=== PATIENT | female | born 1990 | race African-American/Black ===

== ENCOUNTER 2020-11-03 03:55 | Emergency (ER) | payer MEDICAID ==
[~2020-11-03] VITALS: Ht 177.8 cm; Wt 61.0 kg
[2020-11-03] MEDS ORDERED: IBUPROFEN 600MG TABLET PO ONE (04:15)
[2020-11-03] MEDS ORDERED: ACETAMINOPHEN 325MG TABLET PO PRN (04:15)
[2020-11-03 05:11] LABS: CHLORIDE 106 mEq/L (98-107)
[2020-11-03 05:23] LABS: HCG SCREEN POSITIVE
[2020-11-03 05:51] LABS: B-HCG QUANTITATIVE 26305 mIU/mL (<3)
[2020-11-03] MEDS ORDERED: ACET-2708 MT (06:19)
[2020-11-03] MEDS ORDERED: IBUP-2028 MT (06:19)
[2020-11-03] MEDS ORDERED: ONDA4TAB5 MT (06:24)
[2020-11-03] MEDS ORDERED: METOCLOPRAMIDE HCL 10MG/2ML VIAL IM ONE (06:30)
[2020-11-03 06:33] LABS: HEMATOCRIT 28.5 % (36.0-48.0); HEMOGLOBIN 9.5 g/dL (12.0-16.0); MEAN CORPUSCULAR HEMOGLOBIN 28.6 pg (28.0-32.0); MEAN CORPUSCULAR VOLUME 85.9 fL (81.0-99.0); PLATELET 183 x1000/uL (130-400); RED BLOOD CELL COUNT 3.32 mill/uL (4.2-5.4)
[2020-11-03 07:30] VITALS: BP 139/67
== END 2020-11-03 08:00 | disposition home or self-care (01) ==
LOC: ER 03:55
DX: R10.2 Pelvic and perineal pain (principal); N93.8 Other specified abnormal uterine and vaginal bleeding; E87.6 Hypokalemia; D64.9 Anemia, unspecified; R79.89 Other specified abnormal findings of blood chemistry
CPT/HCPCS: 36415; 76801; 80048; 84702; 84703; 85027; 86900; 96372; 99284

== ENCOUNTER 2023-04-28 19:25 | Emergency (ER) | payer MEDICAID ==
[~2023-04-28] VITALS: Ht 172.7 cm; Wt 55.0 kg
[~2023-04-28 19:25] MED LIST: ACET-2708 MT; IBUP-2028 MT; ONDA4TAB5 MT
[2023-04-28 19:40] VITALS: O2SAT 100
[2023-04-28] MEDS ORDERED: MORPHINE SULFATE 4 MG/ML CPJ (NOT FOR IM USE) IV STA (20:17)
[2023-04-28] MEDS ORDERED: ONDANSETRON HCL 4MG/2ML INJ IV STA (20:17)
[2023-04-28] MEDS ORDERED: SODIUM CHLORIDE 0.9% 1,000 ML IV ONE (20:30)
[2023-04-28 21:04] LABS: HEMATOCRIT. 39.7 % (36.0-48.0); HEMOGLOBIN. 12.9 g/dL (12.0-16.0); MEAN CORPUSCULAR HEMOGLOBIN 27.6 pg (28.0-32.0); MEAN CORPUSCULAR HGB CONC 32.5 g/dL (31.0-37.0); MEAN CORPUSCULAR VOLUME 84.8 fL (81.0-99.0); MEAN PLATELET VOLUME 8.8 fl (7.4-10.4); PLATELET 118 x1000/uL (130-400); RED BLOOD CELL COUNT 4.68 mill/uL (4.2-5.4); RED CELL DISTRIBUTION WIDTH 14.7 % (11.6-14.6); WHITE BLOOD COUNT 5.6 x1000/uL (4.5-11.0)
[2023-04-28 21:08] LABS: DIFFERENTIAL COMMENT 1
[2023-04-28 21:14] LABS: CHLORIDE 93 mEq/L (98-107); INDEX HEMOLYSI 1 (1-3); INDEX ICTERIC 1 (1-4); INDEX LIPEMIC 1 (1-3); POTASSIUM 4.3 mEq/L (3.5-5.1); SODIUM 128 mEq/L (136-145)
[2023-04-28 21:22] LABS: ALANINE AMINOTRANSFERASE 179 IU/L (13-61); ALBUMIN 2.9 g/dL (3.4-5.0); ASPARTATE AMINOTRANSFERASE 358 IU/L (15-37); BILIRUBIN TOTAL 1.4 mg/dL (0.1-1.0); CALCIUM 9.3 mg/dL (8.5-10.1); CARBON DIOXIDE 28 mEq/L (21-32); CREATININE 0.7 mg/dL (0.6-1.3); GLUCOSE 84 mg/dL (70-105); PROTEIN TOTAL 8.2 g/dL (6.0-8.3); UREA NITROGEN BLOOD 11 mg/dL (7-21)
[2023-04-28 21:27] LABS: HCG SCREEN NEGATIVE
[2023-04-28 23:15] VITALS: BP 134/83; PULSE 92; RESP 17; TEMP 98.2
[2023-04-28 23:47] LABS: PLATELET ESTIMATE DECREASED
[2023-04-28 23:48] LABS: ANISOCYTOSIS 1+
== END 2023-04-28 23:46 | disposition short-term general hospital (02) ==
LOC: ER 19:25
DX: R11.2 Nausea with vomiting, unspecified (principal); Z85.3 Personal history of malignant neoplasm of breast
CPT/HCPCS: 80053; 84703; 83690; 85025; 36415; 96361; 96374; 96375; 99285; J2405; J2270; J7030; Z7610 ×3

== ENCOUNTER 2023-05-09 11:27 | Emergency (ER) | payer MEDICAID ==
[~2023-05-09] VITALS: Ht 167.6 cm; Wt 50.0 kg
[2023-05-09 11:30] VITALS: O2SAT 96
[2023-05-09 12:46] LABS: EOSINOPHILS % 2.5 % (0.0-5.0); HEMATOCRIT. 35.2 % (36.0-48.0); HEMOGLOBIN. 11.5 g/dL (12.0-16.0); LYMPHOCYTES % 8.3 % (20.0-50.0); MEAN CORPUSCULAR HEMOGLOBIN 27.2 pg (28.0-32.0); MEAN CORPUSCULAR HGB CONC 32.7 g/dL (31.0-37.0); MEAN CORPUSCULAR VOLUME 83.2 fL (81.0-99.0); MEAN PLATELET VOLUME 10.6 fl (7.4-10.4); MONOCYTES % 1.1 % (2.0-8.0); NEUTROPHILS % 87.1 % (40.0-76.0); PLATELET 53 x1000/uL (130-400); RED BLOOD CELL COUNT 4.23 mill/uL (4.2-5.4); RED CELL DISTRIBUTION WIDTH 16.5 % (11.6-14.6); WHITE BLOOD COUNT 2.5 x1000/uL (4.5-11.0)
[2023-05-09 12:55] LABS: HCG SCREEN NEGATIVE
[2023-05-09] MEDS ORDERED: MORPHINE SULFATE 4 MG/ML CPJ (NOT FOR IM USE) IV ONE (13:00)
[2023-05-09 13:22] LABS: CHLORIDE 98 mEq/L (98-107); INDEX HEMOLYSI 1 (1-3); INDEX ICTERIC 2 (1-4); INDEX LIPEMIC 1 (1-3); POTASSIUM 3.9 mEq/L (3.5-5.1); SODIUM 129 mEq/L (136-145)
[2023-05-09] MEDS ORDERED: ONDANSETRON HCL 4MG/2ML INJ IV NR (13:30)
[2023-05-09] MEDS ORDERED: FAMOTIDINE 20MG/2ML VIAL IV NR (13:30)
[2023-05-09 13:33] LABS: CREATININE 0.5 mg/dL (0.6-1.3); GLUCOSE 95 mg/dL (70-105); TROPONIN I HIGH SENSITIVITY 5 ng/L (<54); UREA NITROGEN BLOOD 8 mg/dL (7-21)
[2023-05-09 13:58] LABS: CARBON DIOXIDE 25 mEq/L (21-32)
[2023-05-09] MEDS ORDERED: CALCIUM GLUCONATE 100MG/ML 10ML VIAL IV NR (14:00)
[2023-05-09 14:17] LABS: CLARITY URINE CLEAR (CLEAR); COLOR URINE DARK YELLOW (YELLOW); GLUCOSE URINE NEGATIVE (NEGATIVE); KETONES URINE 1+ (NEGATIVE); LEUKOCYTE ESTERASE URINE 2+ (NEGATIVE); NITRITE URINE NEGATIVE (NEGATIVE); OCCULT BLOOD URINE NEGATIVE (NEGATIVE); PROTEIN URINE TRACE (NEGATIVE); SPECIFIC GRAVITY URINE 1.023 (1.005-1.030)
[2023-05-09 14:33] LABS: SQUAMOUS EPITHELIAL CELL URINE 1+ /lpf (RARE/1+)
[2023-05-09 14:34] LABS: BACTERIA URINE 1+
[2023-05-09 14:35] LABS: RBC URINE 0-2 /hpf (0-2)
[2023-05-09] MEDS ORDERED: MORPHINE SULFATE 2 MG/ML CPJ (NOT FOR IM USE) IV ONE (17:15)
[2023-05-09 22:02] VITALS: BP 134/70; PULSE 97; RESP 15; TEMP 98.3
== END 2023-05-09 22:47 | disposition home or self-care (01) ==
LOC: ER 11:27 → EDBEDREQ 14:32 → CANBEDREQ 17:47 → ER 22:47
DX: M79.10 Myalgia, unspecified site (principal); R11.2 Nausea with vomiting, unspecified; Z85.9 Personal history of malignant neoplasm, unspecified
CPT/HCPCS: 80048; 81003; 84703; 85025; 87086; 84484; 36415; 71045; 93005; 96374; 96375; 96376; 99285; J0610; J3490; J2405; J2270 ×2; Z7610 ×3

== ENCOUNTER 2023-06-24 18:37 | Emergency (ER) | payer MEDICAID ==
[~2023-06-24] VITALS: Ht 162.6 cm; Wt 50.0 kg
[2023-06-24 18:38] VITALS: TEMP 99.7; O2SAT 99
[2023-06-24] MEDS ORDERED: HYDROCODONE/ACETAMINOPHEN 5/325MG TABLET PO ONE (22:00)
[2023-06-24 22:40] VITALS: BP 125/85; PULSE 98; RESP 16
== END 2023-06-24 22:40 | disposition left against medical advice (07) ==
LOC: ER 18:37
DX: R10.84 Generalized abdominal pain (principal); Z53.21 Procedure and treatment not carried out due to patient leaving prior to being seen by health care provider; Z98.890 Other specified postprocedural states
CPT/HCPCS: 99283